=== PATIENT | female | born 1990 | race Caucasian/White ===

== ENCOUNTER 2017-06-06 17:34 | Emergency (ER) | payer OTHER, BC ==
[2017-06-06 17:40] VITALS: BP 122/73; PULSE 77; RESP 16; TEMP 98.8; O2SAT 99
--- NOTE | 2017-06-06 18:14 | EDPHY ---
H & P Time Seen by Provider: 06/06/17 17:57 HPI/ROS: CHIEF COMPLAINT: Left 4th finger injury HISTORY OF PRESENT ILLNESS: 27-year-old female presents to the emergency department with injury to her left ring finger. The patient was at work and a dog pulled on her wedding ring on that finger and she twisted her finger. She is left-hand dominant. She complains of isolated pain to the left 4th finger. She was concerned about it being dislocated. Denies any other trauma or injury. Incident happened just prior to arrival at work. ROS: Denies numbness or tingling in her fingers, pain in the other fingers, abrasions. Past Medical/Surgical History: Negative Social History: Smoking Status: Never smoked Physical Exam: On examination the patient has no obvious deformity noted to the left 4th finger. She has reproducible pain with palpation along the proximal phalanx as well as PIP joint. No abrasion or puncture wound. No ecchymosis. Normal sensation to light touch with normal 2 point discrimination. The other fingers do not appear injured. Constitutional: Initial Vital Signs Temperature (C) 37.1 C 06/06/17 17:35 Heart Rate 77 06/06/17 17:35 Respiratory Rate 16 06/06/17 17:35 Blood Pressure 122/73 H 06/06/17 17:35 O2 Sat (%) 99 06/06/17 17:35 O2 Delivery Mode Room Air Allergies/Adverse Reactions: No Known Allergies Allergy (Unverified 06/06/17 17:39) Home Medications: Medication Instructions Recorded NK [No Known Home Meds] 06/06/17 MDM/Departure - MDM Imaging Results: Imaging Impressions Finger X-Ray 06/06/17 17:43 Impression: No acute osseous findings. Imaging: I viewed and interpreted images myself Procedures: Patient was placed in Alumafoam splint and fingers were dwayne-taped. 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 ED Course/Re-evaluation: 27-year-old female presents with left finger injury. X-rays reveal no fractures or dislocation. She was placed in Alumafoam splint and fingers were dwayne-taped and she was given orthopedic hand surgical referral. - Depart Disposition: Home, Routine, Self-Care Clinical Impression: Sprain of left ring finger Qualifiers: Encounter type: initial encounter Sprain of finger site: interphalangeal joint Qualified Code(s): S63.635A - Sprain of interphalangeal joint of left ring finger, initial encounter Condition: Good Instructions: Finger Sprain (ED) Additional Instructions: Alumafoam splint and dwayne tape fingers for comfort and support. Ibuprofen 600 mg every 8 hours as needed for pain. Ice and elevate to help reduce swelling. Follow up with orthopedic surgeon on-call. Work Related Injury: Date of Injury (if different from Date of Service): Your work restrictions, if any, last only until the next business day. Formal evaluation for work restrictions beyond one day must be arranged through your employer's workman's compensation provider. Restrictions are noted below: xReturn to work today. xRight hand work only. Referrals: Harman Topete MD [Medical Doctor] - 5-7 days, call for appt. (Orthopedic hand surgeon on-call) Work Comp Ref/Restrictions [Outside] - As per Instructions
== END 2017-06-06 19:03 | disposition home or self-care (01) ==
DX: S63.635A Sprain of interphalangeal joint of left ring finger, initial encounter (principal); X50.9XXA Other and unspecified overexertion or strenuous movements or postures, initial encounter; Y92.69 Other specified industrial and construction area as the place of occurrence of the external cause; Y99.0 Civilian activity done for income or pay; Y93.89 Activity, other specified

== ENCOUNTER → 2018-02-03 | Outpatient (CLI) | payer BC | LOC: FIMAGING 16:14 | PROVIDERS: ATTEND Obstetrics & Gynecology | DX: O01.9 Hydatidiform mole, unspecified (principal); J40 Bronchitis, not specified as acute or chronic ==

== ENCOUNTER 2018-02-05 06:30 | Day surgery (SDC) | payer BC ==
--- NOTE | 2018-02-03 20:07 | GHP ---
[f rep st] PREOP HISTORY AND PHYSICAL PLANNED PROCEDURE: Suction dilation and curettage. PREOPERATIVE DIAGNOSIS: Missed versus suspected molar . INDICATIONS: Patient is a 27-year-old, 4, para 0-0-3-0, whose last menstrual period was 12/08/2017. She presented to [facility] on 01/15/2018 , because of the recurrent loss and a positive test. Patient was 5 weeks 3 days at her visit. She had an hCG drawn which was 2852 on 01/15. She had a repeat lab drawn which was 6108 and showed a good rise. Because of patient's past poor obstetric medical history, we also obtained an HbA1c, which was negative, a TSH which was negative, and an antiphospholipid antibody syndrome lab workup, which was also negative. Patient presented for a visit on 01/26, for ultrasound and an ultrasound was performed which showed a probable gestational sac measuring 5 weeks 5 days with a possible yolk sac visualized within the gestational sac, but no distinct pole or heart rate. There was a subchorionic hemorrhage noted inferior to the gestational sac. Patient followed up today for a repeat ultrasound a week later which showed in the upper endocervical canal there is a large complex mass seen with multi cystic areas and echogenic debris. No vascularity seen within. No obvious embryo or yolk sac seen. This was suspicious for a possible molar . Diagnosis of an abnormal was made and we discussed the suspicion for a molar . Patient was tearful. We discussed recommendations for proceeding with a suction dilation and curettage and to send the tissue to Pathology and we briefly discussed subsequent followup if it is found to be molar . Risks and benefits have been reviewed with the patient and she will sign consent the morning of surgery. PATIENT'S MEDICAL HISTORY: Positive for recurrent loss. MEDICATIONS: vitamins and she has been on progesterone and aspirin. SURGICAL HISTORY: D and C x1. ALLERGIES: No known drug allergies. SOCIAL HISTORY: Patient is in a long-term relationship. 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 She denies tobacco, alcohol or drug use. FAMILY MEDICAL HISTORY: Noncontributory. CYTOPATHOLOGY TECHNOLOGIST HISTORY: Menarche age 16. Periods every 30 days, lasting 2 days. She is a 4, para 0-0-3-0. In 2008, she had a voluntary termination of . In 2011, she had a spontaneous of a 12 to 14-week fetus. She had an ultrasound in 8 weeks at [facility] which showed size equals dates. She had a ultrasound at 12 weeks and was told that she had a placenta previa and the baby had a heart beat. Patient had sex that night and subsequently had a spontaneous . In 2014, she had a missed AB of an 8- week fetus. She had early care at 8 weeks which showed cardiac activity. She had a followup visit at 12 weeks and the crown-rump length was then measuring 8 weeks 3 days with no cardiac activity, so patient had a D and C. Current is an abnormal , suspected for molar . Patient denies any history of any abnormal Pap smears or sexually transmitted diseases. PHYSICAL EXAMINATION: VITAL SIGNS: Her blood pressure is 110/58. Her weight is 131. GENERAL APPEARANCE: Tearful, but alert and oriented x3. PSYCHIATRIC: Appropriate affect. MUSCULOSKELETAL: Grossly intact. NEUROLOGIC: Grossly intact. NECK: Mobile and supple. HEART: Rate is LUNGS: Clear to auscultation bilaterally. ABDOMEN: Soft, nondistended, nontender. EXTREMITIES : Reveal no calf tenderness or edema. PELVIC: Reveals a mobile midposition uterus which is slightly enlarged in size. No adnexal masses are noted. Pelvic ultrasound is described above. Patient's labs are pending including type and screen, a chest x-ray, and a complete metabolic panel, CBC, and PT, PTT. ASSESSMENT AND PLAN: 27-year-old, 4, para 0-0-3-0 with recurrent loss and suspected molar . Patient will undergo a suction dilation and curettage. Risks and benefits have been reviewed with the patient and patient has been properly consented. She will sign consent day of surgery. /[id number]/MODL MTDD
--- NOTE | 2018-02-05 07:28 | PDANEPAE ---
ANE History of Present Illness Molar . ANE Past Medical History - Pulmonary History Hx COPD: No Hx Asthma/Reactive Airway Disease: No Hx Recent Upper Respiratory Infection: No Hx Oxygen in Use at Home: No Hx Sleep Apnea: No - Endocrine History Hx Diabetes: No Hypothyroid: No Hyperthyroid: No Obesity: no - Surgical History Prior Surgeries: Prior D&C and rhinoplasty with general anesthesia. ANE Review of Systems Review of systems is: negative Review of Systems: ANE Patient History - Allergies Allergies/Adverse Reactions: No Known Allergies Allergy (Unverified 06/06/17 17:39) - Home Medications Home Medications: Ondansetron HCl [Zofran] 1 tab PO Q6 02/05/18 [Last Taken 02/04/18 19:30] - NPO status NPO Since - Liquids (Date): 02/04/18 NPO Since - Liquids (Time): 19:30 NPO Since - Solids (Date): 02/04/18 NPO Since - Solids (Time): 19:30 - Anes Hx Anes Hx: no prior problems - Smoking Hx Smoking Status: Never smoked - Family Anes Hx Family Anes Hx: neg - N/A ANE Labs/Vital Signs - Vital Signs Blood Pressure: 109/65 Heart Rate: 99 Respiratory Rate: 18 O2 Sat (%): 97 Height: 165.1 cm Weight: 58.967 kg ANE Physical Exam - Airway Neck exam: FROM Mallampati Score: Class 2 Mouth exam: normal dental/mouth exam - Pulmonary Pulmonary: no respiratory distress - Cardiovascular Cardiovascular: regular rate and rhythym ANE Anesthesia Plan Anesthesia Plan: GA with mask
[2018-02-05] MEDS ORDERED: DOXYCYCLINE HYCLATE 100 MG CAP/TAB PO ONE (07:30)
[2018-02-05] MEDS ORDERED: PROPOFOL/EMULSION 500 MG/50 ML BOTTLE IV ONE (07:38)
[2018-02-05] MEDS ORDERED: fentaNYL 100 MCG/2 ML INJ ONE (07:39)
[2018-02-05] MEDS ORDERED: MISOPROSTOL 200 MCG TAB ONE (07:47)
[2018-02-05] MEDS ORDERED: METHYLERGONOVINE MAL 0.2 MG/ML INJ ONE (07:48)
[2018-02-05] MEDS ORDERED: MIDAZOLAM 2 MG/2 ML VIAL ONE (08:01)
[2018-02-05] MEDS ORDERED: DEXAMETHASONE 4 MG/ML VIAL ONE ×2 (08:24→08:58)
[2018-02-05] MEDS ORDERED: ONDANSETRON 4 MG/2 ML VIAL ONE ×2 (08:24→08:57)
[2018-02-05] MEDS ORDERED: OXYTOCIN 100 UNITS/10 ML VIAL ONE (08:36)
[2018-02-05] MEDS ORDERED: LIDOCAINE 2% 5 ML SDV ONE (08:36)
[2018-02-05] MEDS ORDERED: KETOROLAC 30 MG/1 ML SDV ONE (08:37)
[2018-02-05] MEDS ORDERED: MEPERIDINE 25 MG/0.5 ML AMP IVP PRN (09:17)
[2018-02-05] MEDS ORDERED: NALOXONE HCL 0.4 MG/ML INJ IVP PRN (09:17)
[2018-02-05] MEDS ORDERED: fentaNYL 100 MCG/2 ML INJ IVP PRN (09:17)
[2018-02-05] MEDS ORDERED: HYDROCODONE/APAP 5/325 TAB PO PRN (09:17)
--- NOTE | 2018-02-05 09:19 | POSTANESTH ---
Post Anesthetic Evaluation Cardiovascular Status: Normal, Stable, Similar to Pre-Op Cond Respiratory Status: Normal, Stable, Similar to Pre-op Cond. Level of Consciousness/Mental Status: Can Participate in Eval, Alert and Oriented Pain Control: Adequate, Prn Tx Ordered Nausea/Vomiting Control: Adequate, Prn Tx Ordered Complications Possibly Related to Anesthesia: None Noted
[2018-02-05] MEDS ORDERED: METOCLOPRAMIDE 10 MG/2 ML VIAL ONE (09:48)
[2018-02-05 11:09] VITALS: BP 107/58
--- NOTE | 2018-02-05 14:00 | GOP ---
[f rep st] OPERATIVE REPORT DATE OF OPERATION: 02/05/2018 SURGEON: Ana Montano DO JV BASEBALL COACH: Mame Paulson MD, who did ultrasound. ANESTHESIA: General. ANESTHESIOLOGIST: Murray Jolly MD. PREOPERATIVE DIAGNOSIS: Missed with suspected molar . POSTOPERATIVE DIAGNOSIS: Missed with suspected molar . PROCEDURE PERFORMED: Suction, dilation, and curettage under ultrasound guidance. FINDINGS: Mobile retroverted uterus which was slightly enlarged in size. Pre D and C ultrasound luis wed a thickened cystic endometrium. Post D and C showed a thin endometrial stripe. SPECIMENS: Products of conception. ESTIMATED BLOOD LOSS: 50 mL. INDICATIONS: Patient is a 27-year-old 4, para 0-0-3-0, who has a history of recurrent pregna ncy loss, so she established early care with this . Her HCG initially henry appropr iately from 2850 on 01/15 to 6108 48 hours later. We got an early ultrasound on 01/16, which showed a p robable gestational sac measuring 5 weeks, 5 days with a probable yolk sac, but no distinct tim e or heart rate, so she had a repeat ultrasound done a week later which showed a thickened endometria l canal with multicystic areas and echogenic debris, most likely consistent with a molar . An HCG was obtained which was 126,000. Presumptive diagnosis of molar was made. Managemen t options were reviewed with the patient. Patient was consented to proceed with a suction dilation a nd curettage to send the tissue for Anora genetic testing due to her history of recurrent l oss and for this suspected molar . Risks and benefits of the procedure were reviewed with t he patient and she signed consent. DESCRIPTION OF PROCEDURE: Patient was taken to the operating room after being given 200 mg of Cytote c orally. She was then placed on the operating room table in the dorsal supine position where genera l anesthesia was obtained. She was then repositioned into the dorsal lithotomy position with the Yel lofin stirrups and prepped and draped in normal sterile fashion. Exam under anesthesia revealed a mo bile retroverted uterus which was slightly enlarged in size. A transvaginal ultrasound confirmed a t hickened, cystic endometrium. A speculum was then placed in the patient's vagina. An Allis clamp wa s used to grasp the anterior lip of the cervix and the cervix was then dilated to allow for the intro duction of a curved 10 suction curette. A circumferential curettage was performed and a large amount of products of conception were noted. An additional pass was made with the suction curette. A meta l curette was then introduced, and a gentle curettage was performed. The suction curette was then in troduced for 1 additional pass. All of this was visualized by transabdominal ultrasound throughout t he procedure. Following completion of the procedure, instruments were then removed from the patient' s vagina and a transvaginal ultrasound was performed, and a thin endometrial stripe was noted. Bleed ing was noted to be minimal. She was given a 1000 Cytotec per rectum and Pitocin was then started ju st in case. The patient was then returned to the dorsal supine position where she was easily awoken from anesthesia. Sponge count was correct. The patient was transported to recovery room in stable c ondition. /[id number]/MODL
== END 2018-02-05 11:20 | disposition home or self-care (01) ==
LOC: FOBOP 06:30
PROVIDERS: ATTEND Obstetrics & Gynecology
PROC: 10D18ZZ Extraction of Products of Conception, Retained, Via Natural or Artificial Opening Endoscopic (ICD-10-PCS; principal; 2018-02-05)
DX: O02.0 Blighted ovum and nonhydatidiform mole (principal); O26.21 Pregnancy care for patient with recurrent pregnancy loss, first trimester; Z3A.01 Less than 8 weeks gestation of pregnancy
CPT/HCPCS: J1100; J1885; J2210; J2250; J2405; J2590; J2704; J2765; J3010

== ENCOUNTER 2018-02-08 01:25 | Emergency (ER) | payer BC ==
[2018-02-08] MEDS ORDERED: ONDANSETRON 4 MG/2 ML VIAL ONE (01:34)
[2018-02-08] MEDS ORDERED: NS 1,000 ML IV ONE ×2 (01:44→01:45)
[2018-02-08] MEDS ORDERED: ONDANSETRON 4 MG/2 ML VIAL IVP ONE (01:44)
--- NOTE | 2018-02-08 01:45 | EDPHY ---
H & P Stated Complaint: RUQ abd pain sin D&C 3 days ago. Time Seen by Provider: 02/08/18 01:45 HPI/ROS: HPI CHIEF COMPLAINT: Abdominal pain HISTORY OF PRESENT ILLNESS: Very pleasant 27-year-old female presents emergency room with upper abdominal pain. Specifically right upper quadrant epigastric. This so she had nausea vomiting. She states she had a D and C due to molar on Dr. Montano, patient presents emergency room with epigastric abdominal pain. She describes it as a dull ache. The time sharp stabbing. Does not radiate anywhere. Located epigastric right upper quadrant. She has associated vomiting with this. No hematemesis. Denies any black tarry stools. Denies lower abdominal pain. Past Medical History: No significant medical history Past Surgical History: Recent D and C for molar . Social History: Denies daily use drugs alcohol tobacco products Family History: Noncontributory ROS REVIEW OF SYSTEMS: A comprehensive 10 point review of systems is otherwise negative aside from elements mentioned in the history of present illness. Exam Constitutional nontoxic. triage nursing summary reviewed, vital signs reviewed , awake/alert. Eyes normal conjunctivae and sclera, EOMI, PERRLA. HENT normal inspection, atraumatic, moist mucus membranes, no epistaxis, neck supple/ no meningismus, no raccoon eyes. Respiratory clear to auscultation bilaterally, normal breath sounds, no respiratory distress, no wheezing. Cardiovascular rate normal, regular rhythm, no murmur, no edema, distal pulses normal. Gastrointestinal mild tender palpation epigastric, no rebound, no guarding, normal bowel sounds, no distension, no pulsatile mass. Genitourinary no CVA tenderness. Musculoskeletal no midline vertebral tenderness, full range of motion, no calf swelling, no tenderness of extremities, no meningismus, good pulses, neurovascularly intact. Skin pink, warm, & dry, no rash, skin atraumatic. Neurologic awake, alert and oriented x 3, AAOx3, moves all 4 extremities equally, motor intact, sensory intact, CN II-XII intact, normal cerebellar, normal vision, normal speech. Psychiatric normal mood/affect. Heme/Lymph/Immune no lymphadenopathy. Differential diagnosis includes but is not limited to and in no particular order : Bowel obstruction, appendicitis, gallbladder disease, diverticulitis, colitis , enteritis, perforated viscus, gastritis, GERD, esophagitis, urinary tract infection, pyelonephritis, kidney stones Medical Decision Making: Plan for this patient IV establishment IV fluid bolus , IV Zofran for nausea, IV Dilaudid for pain control, ultrasound gallbladder, check lipase, LFTs. Re-evaluate. Re-evaluation: 0249: Patient's ultrasound shows no evidence of gallstones. However ultrasound did get a view of the duodenum and stomach possible gastritis versus duodenitis. Given this I have ordered the patient IV Pepcid and a GI cocktail to see if this improves her discomfort. IT Is also possible she has a stress ulcer given recent surgery. 0432AM: Patient re-evaluated she is feeling much better after GI cocktail and IV Pepcid. Her abdomen is soft nontender. She is not vomiting. Her blood work and ultrasound been reviewed. She denies any chest pain or shortness of breath or pleuritic pain. Pain improved after GI cocktail. Ultrasound concerning for gastritis versus duodenitis versus ulcer disease. Given that she just had a D and C and molar and has been under stress it is possible she has gastric ulcer. Recommend she stays away from fatty greasy spicy foods. Recommend Zantac as prescribed. She should return emergency room she develops worsening abdominal pain fever vomiting vomiting blood or dark dark black stools. She understands. Source: Patient - Personal History Current Tetanus/Diphtheria Vaccine: Yes Current Tetanus Diphtheria and Acellular Pertussis (TDAP): Yes - Medical/Surgical History Hx Asthma: No Hx Chronic Respiratory Disease: No Hx Diabetes: No Hx Cardiac Disease: No Hx Renal Disease: No Hx Cirrhosis: No Hx Alcoholism: No Hx HIV/AIDS: No Hx Splenectomy or Spleen Trauma: No Other PMH: rhinoplasty 19, D&C 14 - Social History Smoking Status: Never smoked Constitutional: Initial Vital Signs Temperature (C) 36.8 C 02/08/18 01:27 Heart Rate 68 02/08/18 01:27 Respiratory Rate 16 02/08/18 01:27 Blood Pressure 113/78 02/08/18 01:27 O2 Sat (%) 97 02/08/18 01:27 O2 Delivery Mode Room Air Allergies/Adverse Reactions: No Known Allergies Allergy (Unverified 06/06/17 17:39) Home Medications: Medication Instructions Recorded Ondansetron HCl [Zofran] 1 tab PO Q6 02/05/18 Ranitidine HCl [Zantac] 150 mg PO DAILY #14 tablet 02/08/18 Medical Decision Making - Data Points Laboratory Results: Laboratory Results 02/08/18 01:45 02/08/18 01:45 02/08/18 02/08/18 02/08/18 03:15 01:45 01:45 WBC 12.65 10^3/uL H 10^3/uL (3.80-9.50) RBC 5.41 10^6/uL H 10^6/uL (4.18-5.33) Hgb 15.8 g/dL g/dL (12.6-16.3) Hct 46.7 % % (38.0-47.0) MCV 86.3 fL fL (81.5-99.8) MCH 29.2 pg pg (27.9-34.1) MCHC 33.8 g/dL g/dL (32.4-36.7) RDW 12.8 % % (11.5-15.2) Plt Count 305 10^3/uL 10^3/uL (150-400) MPV 12.0 fL H fL (8.7-11.7) Neut % (Auto) 75.1 % H % (39.3-74.2) Lymph % (Auto) 17.2 % % (15.0-45.0) Meade % (Auto) 6.5 % % (4.5-13.0) Eos % (Auto) 0.2 % L % (0.6-7.6) Baso % (Auto) 0.5 % % (0.3-1.7) Nucleat RBC Rel Count 0.0 % % (0.0-0.2) Absolute Neuts (auto) 9.52 10^3/uL H 10^3/uL (1.70-6.50) Absolute Lymphs (auto) 2.17 10^3/uL 10^3/uL (1.00-3.00) Absolute Monos (auto) 0.82 10^3/uL H 10^3/uL (0.30-0.80) Absolute Eos (auto) 0.02 10^3/uL L 10^3/uL (0.03-0.40) Absolute Basos (auto) 0.06 10^3/uL 10^3/uL (0.02-0.10) Absolute Nucleated RBC 0.00 10^3/uL 10^3/uL (0-0.01) Immature Gran % 0.5 % % (0.0-1.1) Immature Gran # 0.06 10^3/uL 10^3/uL (0.00-0.10) Sodium 143 mEq/L mEq/L (135-145) Potassium 3.7 mEq/L mEq/L (3.3-5.0) Chloride 104 mEq/L mEq/L (97-110) Carbon Dioxide 24 mEq/l mEq/l (22-31) Anion Gap 15 mEq/L mEq/L (8-16) BUN 9 mg/dL mg/dL (7-23) Creatinine 0.6 mg/dL mg/dL (0.6-1.0) Estimated GFR > 60 Glucose 80 mg/dL mg/dL (70-100) Calcium 10.0 mg/dL mg/dL (8.5-10.4) Total Bilirubin 0.6 mg/dL mg/dL (0.1-1.4) Conjugated Bilirubin 0.3 mg/dL mg/dL (0.0-0.5) Unconjugated Bilirubin 0.3 mg/dL mg/dL (0.0-1.1) AST 22 IU/L IU/L (14-46) ALT 25 IU/L IU/L (9-52) Alkaline Phosphatase 58 IU/L IU/L (38-126) Total Protein 7.9 g/dL g/dL (6.3-8.2) Albumin 4.7 g/dL g/dL (3.5-5.0) Lipase 44 IU/L IU/L (23-300) Beta HCG, Quant 12012.00 mIU/mL H mIU/mL (0.00-4.83) Urine Color PALE YELLOW Urine Appearance HAZY Urine pH 7.0 (5.0-7.5) Ur Specific Evans 1.009 (1.002-1.030) Urine Protein NEGATIVE (NEGATIVE) Urine Ketones 1+ H (NEGATIVE) Urine Blood 1+ H (NEGATIVE) Urine Nitrate NEGATIVE (NEGATIVE) Urine Bilirubin NEGATIVE (NEGATIVE) Urine Urobilinogen NEGATIVE EU EU (0.2-1.0) Ur Leukocyte Esterase NEGATIVE (NEGATIVE) Urine RBC 3-5 /hpf H /hpf (0-3) Urine WBC 1-3 /hpf /hpf (0-3) Ur Epithelial Cells TRACE /lpf /lpf (NONE-1+) Amorphous Sediment PRESENT /hpf /hpf (NONE-1+) Urine Mucus TRACE /lpf /lpf (NONE-1+) Urine Glucose NEGATIVE (NEGATIVE) Medications Given: Discontinued Medications Al Hydroxide/Mg Hydroxide (Maalox Susp) 30 ml PO ONCE ONE Stop: 02/08/18 02:49 Last Admin: 02/08/18 02:53 Dose: 30 ml Famotidine (Pepcid) 20 mg IVP EDNOW ONE Stop: 02/08/18 02:49 Last Admin: 02/08/18 02:53 Dose: 20 mg Hyoscyamine Sulfate (Levsin, Hyomax-Sl) 0.25 mg PO ONCE ONE Stop: 02/08/18 02:49 Last Admin: 02/08/18 02:53 Dose: 0.25 mg Sodium Chloride (Ns) 1,000 mls @ 0 mls/hr IV ONCE ONE PRN Reason: Wide Open Stop: 02/08/18 01:45 Last Admin: 02/08/18 01:45 Dose: 1,000 mls Sodium Chloride (Ns) 1,000 mls @ 0 mls/hr IV EDNOW ONE; Wide Open PRN Reason: Protocol Stop: 02/08/18 01:46 Last Admin: 02/08/18 02:31 Dose: 1,000 mls Lidocaine (Lidocaine 2% Viscous) 15 ml PO ONCE ONE Stop: 02/08/18 02:49 Last Admin: 02/08/18 02:53 Dose: 15 ml Ondansetron HCl (Zofran) 4 mg IVP EDNOW ONE Stop: 02/08/18 01:45 Last Admin: 02/08/18 01:46 Dose: 4 mg Departure - Departure Disposition: Home, Routine, Self-Care Clinical Impression: Gastritis Qualifiers: Gastritis type: unspecified gastritis Chronicity: acute Gastritis bleeding: without bleeding Qualified Code(s): K29.00 - Acute gastritis without bleeding Condition: Good Instructions: Gastritis (ED) Additional Instructions: 1. No spicy fatty greasy foods for the next 2 weeks. 2. Zantac for the next 2 weeks 3. Return emergency room if develops worsening abdominal pain, fever, vomiting, vomiting blood, black tarry stools. Referrals: Ana Montano DO [Primary Care Provider] - As per Instructions Obed Carter MD [Medical Doctor] - As per Instructions Prescriptions: Ranitidine HCl [Zantac] 150 mg PO DAILY #14 tablet
[2018-02-08 02:04] LABS: PLATELET COUNT 305 10^3/uL (150-400)
[2018-02-08] MEDS ORDERED: LIDOCAINE 2% VISCOUS 15 ML UDCUP PO ONE (02:48)
[2018-02-08] MEDS ORDERED: FAMOTIDINE 20 MG/2 ML SDV IVP ONE (02:48)
[2018-02-08] MEDS ORDERED: MAG HYDROX/AL HYDROX/SIMETH 30 ML UDCUP PO ONE (02:48)
[2018-02-08] MEDS ORDERED: HYOSCYAMINE SULFATE 0.125 MG TAB PO ONE (02:48)
[2018-02-08 04:44] VITALS: BP 128/86
== END 2018-02-08 04:51 | disposition home or self-care (01) ==
DX: K29.00 Acute gastritis without bleeding (principal); E86.9 Volume depletion, unspecified
CPT/HCPCS: 96374; J2405